=== PATIENT | male | born 1995 | race Caucasian/White ===

== ENCOUNTER → 2017-11-29 | Outpatient (CLI) | payer OTHER ==
--- NOTE | 2017-11-29 09:41 | DIAGNOSTIC IMAGING REPORT ---
R SHOULDER MIN 2 VIEWS CLINICAL HISTORY: Right shoulder pain COMPARISON: None. DISCUSSION: No fractures or dislocations are visualized. There are no visible periarticular calcifications. IMPRESSION: Unremarkable conventional radiographic evaluation of the right shoulder Electronically signed by: James Arreaga M.D. 11/29/2017 9:39 AM Dictated Date/Time: 11/29/2017 9:39 AM
== END | disposition home or self-care (01) ==
LOC: C.RDSM 18:46
PROVIDERS: ATTEND Family Medicine
DX: M25.511 Pain in right shoulder (principal)

== ENCOUNTER → 2017-12-21 | Outpatient (CLI) | payer OTHER ==
--- NOTE | 2017-12-21 18:04 | DIAGNOSTIC IMAGING REPORT ---
C-SPINE ROUTINE W/FLEX EXT HISTORY: 22 years-old Male R ARM WEAKNESS acute right arm and right shoulder weakness status post trauma COMPARISON: None available TECHNIQUE: 5 standard views of the cervical spine with additional lateral flexion and extension views for a total of 7 images FINDINGS: There is straightening of the normal cervical lordosis. No acute fracture or subluxation. Bony neuroforamina appear patent. Alignment is preserved on the neutral, flexion and extension views. No prevertebral soft tissue swelling. No opaque foreign body. Imaged lung apices are clear. IMPRESSION: 1. No acute fracture or subluxation. 2. Straightening of the normal cervical lordosis. The above report was generated using voice recognition software. It may contain grammatical, syntax or spelling errors. Electronically signed by: Geovanny Monaco M.D. 12/21/2017 6:02 PM Dictated Date/Time: 12/21/2017 6:00 PM
== END | disposition home or self-care (01) ==
LOC: C.RAD 17:32
PROVIDERS: ATTEND Family Medicine
DX: R53.1 Weakness (principal)

== ENCOUNTER → 2018-01-09 | Outpatient (CLI) | payer OTHER ==
[~2018-01-09] MED LIST: GADAVIST IV PRN
--- NOTE | 2018-01-09 13:59 | DIAGNOSTIC IMAGING REPORT ---
R INJECTION SHOULDER PRE MRI CLINICAL HISTORY: 22 years-old Male presenting with RT SHOULDER WEAKNESS, SHOULDER INJURY. COMPARISON: Plain radiograph from 11/29/2017. PROCEDURE: The risks, benefits, and alternatives to the procedure were discussed with the patient. Written informed consent was obtained. The patient was placed supine on the fluoroscopy table, and a right shoulder injection was performed under fluoroscopic guidance. The area was prepped and draped in the usual sterile fashion. The skin and soft tissues anesthetized with local 1% lidocaine. The right shoulder joint was accessed utilizing a 22-gauge needle, and approximately 12 cc of a mixture of gadolinium contrast, Optiray 300, and saline was injected into the joint space under fluoroscopic guidance. There was normal distention of the capsule. The procedure was well tolerated without immediate complication. The patient was then transferred to MRI for MR arthrography. Fluoroscopy dosage (mGy): Not available. Fluoroscopy time: 9 seconds. Number of fluoroscopic spot images: 0. IMPRESSION: Successful injection of the right shoulder under fluoroscopic guidance. Electronically signed by: Nolan Shah M.D. 01/09/2018 1:58 PM Dictated Date/Time: 01/09/2018 1:54 PM
--- NOTE | 2018-01-09 14:30 | DIAGNOSTIC IMAGING REPORT ---
POST ARTHROGRAM MRI THE RIGHT SHOULDER CLINICAL HISTORY: RT SHOULDER WEAKNESS, SHOULDER INJURY COMPARISON STUDY: Conventional radiographic study dated November 29, 2017 FINDINGS: Imaging was performed in the axial, sagittal, and coronal planes. There are no areas of marrow replacement to indicate occult fracture or bone bruise. The bicipital tendon appears normal. There is no evidence of rotator cuff tear. There is a tear the anterior glenoid labrum with a small focus of periosteal sleeve avulsion. IMPRESSION: Anterior labral tear with a small focus of periosteal sleeve avulsion. Electronically signed by: James Arreaga M.D. 01/09/2018 2:29 PM Dictated Date/Time: 01/09/2018 2:23 PM
== END | disposition home or self-care (01) ==
LOC: C.MRIBC 12:46
PROVIDERS: ATTEND Family Medicine
DX: S49.90XA Unspecified injury of shoulder and upper arm, unspecified arm, initial encounter (principal); R29.898 Other symptoms and signs involving the musculoskeletal system; X58.XXXA Exposure to other specified factors, initial encounter